=== PATIENT | male | born 1995 | race Caucasian/White ===

== ENCOUNTER 2016-11-21 15:14 | Emergency (ER) | payer SELFPAY ==
[~2016-11-21] VITALS: Ht 167.6 cm; Wt 109.0 kg
[2016-11-21] MEDS ORDERED: KETOROLAC 30MG/ML VIAL IV ONE (22:30)
[2016-11-21] MEDS ORDERED: ONDANSETRON HCL 4MG/2ML VIAL IV ONE (22:30)
[2016-11-21] MEDS ORDERED: KETOROLAC 60MG/2ML VIAL IM ONE (23:00)
[2016-11-21] MEDS ORDERED: ONDANSETRON 4MG ODT PO ONE (23:00)
[2016-11-21 23:01] LABS: CLARITY URINE CLEAR (CLEAR); COLOR URINE YELLOW (YELLOW); GLUCOSE URINE NEGATIVE (NEGATIVE); KETONES URINE NEGATIVE (NEGATIVE); LEUKOCYTE ESTERASE URINE NEGATIVE (NEGATIVE); NITRITE URINE NEGATIVE (NEGATIVE); OCCULT BLOOD URINE NEGATIVE (NEGATIVE); PROTEIN URINE NEGATIVE (NEGATIVE); SPECIFIC GRAVITY URINE 1.027 (1.005-1.030)
[2016-11-21 23:05] LABS: BASOPHILS % 0.8 % (0.0-2.0); EOSINOPHILS % 4.1 % (0.0-5.0); HEMATOCRIT. 44.4 % (42.0-52.0); HEMOGLOBIN. 15.2 g/dL (14.0-18.0); LYMPHOCYTES % 27.5 % (20.0-50.0); MEAN CORPUSCULAR HEMOGLOBIN 30.4 pg (28.0-32.0); MEAN CORPUSCULAR VOLUME 88.8 fL (80.0-94.0); MEAN PLATELET VOLUME 8.6 fl (7.4-10.4); MONOCYTES % 8.5 % (2.0-8.0); NEUTROPHILS % 59.1 % (40.0-76.0); PLATELET 230 x1000/uL (130-400); RED CELL DISTRIBUTION WIDTH 13.2 % (11.6-14.6)
[2016-11-21 23:11] LABS: CHLORIDE 108 mEq/L (98-107)
[2016-11-21 23:17] LABS: CARBON DIOXIDE 29 mEq/L (21-32)
[2016-11-22] MEDS ORDERED: IOHEXOL-300 100 ML BOTTLE ONE (01:42)
[2016-11-22 03:01] VITALS: BP 124/73
== END 2016-11-22 03:01 | disposition home or self-care (01) ==
LOC: ER 16:02
DX: R10.9 Unspecified abdominal pain (principal)
CPT/HCPCS: 36415; 74177; 80053; 81001; 85025; 96372; 99285; J1885; Q0162; Q9967; Z7610